=== PATIENT | male | born 1965 | race Caucasian/White ===

== ENCOUNTER 2019-12-07 23:52 | Emergency (ER) | payer OTHER ==
--- NOTE | 2019-12-08 02:14 | ER ---
Nurse's Notes [facility] Name: Jean Claude Harris Age: 54 yrs Sex: Male : 1965 Arrival Date: 12/07/2019 Time: 23:58 Bed 28 Private MD: Diagnosis: Laceration without foreign body of unspecified part of head Presentation: 12/07 00:21 Chief complaint: Patient states: Walked into the corner of a trunk door of a [employer] lp1 truck; Laceration to right eyebrow. Coronavirus screen: Patient denies a cough. Patient denies shortness of breath or difficulty breathing. Patient denies measured and/or subjective temperature greater than 100.4F prior to today's visit. Patient denies travel on a cruise ship or to a country the [facility] currently lists as an affected area. Patient denies contact with known and/or suspected case of COVID-19. Ebola Screen: No symptoms or risks identified at this time. 00:21 Method Of Arrival: Ambulatory lp1 00:23 Risk Assessment: Do you want to hurt yourself or someone else? Patient reports no lp1 desire to harm self or others. Onset of symptoms was December 07, 2019 at 22:00. 00:23 Acuity: JEAN-PIERRE 4 lp1 00:26 Initial Sepsis Screen: Does the patient meet any 2 criteria? No. Patient's initial lp1 sepsis screen is negative. Does the patient have a suspected source of infection? No. Patient's initial sepsis screen is negative. Historical: - Allergies: 00:25 shrimp; lp1 - Home Meds: 00:25 Aspirin Oral [Active]; Chantix oral oral [Active]; Zantac Oral [Active]; Flomax Oral lp1 [Active]; - PMHx: 00:25 Hypertension; Diabetes - NIDDM; GERD; Kidney stones; lp1 - PSHx: 00:25 Vasectomy; lp1 - Immunization history:: Adult Immunizations up to date. - Social history:: Smoking status: Patient/guardian denies using tobacco. Screenin:26 Abuse screen: Denies threats or abuse. Denies injuries from another. Nutritional lp1 screening: No deficits noted. Tuberculosis screening: No symptoms or risk factors identified. Fall Risk None identified. Assessment: 01:39 Reassessment: Patient appears in no apparent distress at this time. sg Vital Signs: 00:25 BP 117 / 74; Pulse 129; Resp 18; Temp 98.2(O); Pulse Ox 96% on R/A; Weight 104.33 kg lp1 (R); Height 5 ft. 11 in. (180.34 cm); Pain 06/10; 01:41 BP 112 / 70; Pulse 91; Resp 18; Pulse Ox 99% on R/A; sg 00:25 Body Mass Index 32.08 (104.33 kg, 180.34 cm) lp1 [place] Coma Score: 20:18 Eye Response: spontaneous(4). Verbal Response: oriented(5). Motor Response: obeys cp commands(6). Total: 15. ED Course: 12/06 23:58 Patient arrived in ED. cl3 12/07 00:23 Triage completed. lp1 00:23 Arm band placed on. lp1 00:59 Aldo Mendoza PA is PHCP. cp 00:59 Aldo Wylie MD is Attending Physician. cp 01:23 Adam Vallejo RN is Primary Nurse. sg 01:38 Irrigation of laceration on outer aspect of right eyebrow irrigated with normal saline sg Hibiclens solution Patient tolerated well. Administered Medications: 01:41 Drug: Lidocaine-Epinephrine -1%: (1:100,000) 5 ml {Note: medication administered by cole HALE.} Volume: 20 ml; Route: Infiltration; 02:10 Drug: Tetanus-Diphtheria Toxoid Adult 0.5 ml {Emergency Department Physician: [id number]. Exp: 07/15/2021. Lot #: [id number]. } Route: IM; Site: left deltoid; Outcome: 02:13 Discharge ordered by . cp 02:24 Patient left the ED. sg Signatures: Adam Vallejo, RN RN Merle Menjivar RN RN lp1 Aldo Mendoza PA PA cp Lewis, Charde cl3
--- NOTE | 2019-12-08 02:15 | EDPHYS ---
Physician Documentation [facility] Name: Jean Claude Harris Age: 54 yrs Sex: Male : 1965 Arrival Date: 12/07/2019 Time: 23:58 Bed 28 Private MD: ED Physician Aldo Wylie HPI: 12/07 01:10 This 54 yrs old Male presents to ER via Ambulatory with complaints of Head cp Injury-Adult. 01:10 The patient or guardian reports a laceration, clean. cp 01:10 The complaints affect the above right eye. Context of injury: resulted from striking cp corner of trunk door of truck. 20:18 Onset: The symptoms/episode began/occurred today. Associated signs and symptoms: Loss cp of consciousness: This patient did not experience any loss of consciousness. Pertinent negatives: neck pain, bony tenderness. Historical: - Allergies: 00:25 shrimp; lp1 - Home Meds: 00:25 Aspirin Oral [Active]; Chantix oral oral [Active]; Zantac Oral [Active]; Flomax Oral lp1 [Active]; - PMHx: 00:25 Hypertension; Diabetes - NIDDM; GERD; Kidney stones; lp1 - PSHx: 00:25 Vasectomy; lp1 - Immunization history:: Adult Immunizations up to date. - Social history:: Smoking status: Patient/guardian denies using tobacco. ROS: 01:20 Skin: Positive for hematoma, laceration(s), of the above right eye. cp 01:20 Eyes: Negative for visual disturbance. cp 01:20 Neck: Negative for pain with movement, pain at rest, stiffness, tenderness, bony tenderness. 01:20 Cardiovascular: Negative for chest pain, palpitations. 01:20 Neuro: Negative for altered mental status, headache, loss of consciousness, weakness. 01:20 All other systems are negative. Exam: 01:30 Constitutional: The patient appears in no acute distress, alert, awake, comfortable, cp non-toxic, well developed, well nourished. 01:30 Head/face: Noted is hematoma, that is mild, of the above right eye, a laceration(s), cp that is linear, of the above right eye, Sinus tenderness, is not appreciated. 01:30 Eyes: Pupils: equal, round, and reactive to light and accomodation, Extraocular movements: intact throughout, Conjunctiva: normal, no exudate, no injection, Lids and lashes: appear normal, bilaterally. 01:30 ENT: External ear(s): are unremarkable, Nose: is normal, Mouth: is normal, Posterior pharynx: Airway: no evidence of obstruction, patent. 01:30 Neck: C-spine: vertebral tenderness, is not appreciated, crepitus, is not appreciated, ROM/movement: is normal, no range of motions limitations, no nuchal rigidity. 01:30 Chest/axilla: Inspection: normal. 01:30 Cardiovascular: Rate: tachycardic, Rhythm: regular. 01:30 Respiratory: the patient does not display signs of respiratory distress, Respirations: normal. 01:30 Abdomen/GI: Exam negative for discomfort, distension, guarding, Inspection: abdomen appears normal. 01:30 Neuro: Orientation: to person, place \T\ time. Mentation: is normal, Cerebellar function: is grossly normal, Motor: moves all fours, strength is normal, Sensation: is normal, Gait: is steady, at a normal pace, without difficulty. Vital Signs: 00:25 BP 117 / 74; Pulse 129; Resp 18; Temp 98.2(O); Pulse Ox 96% on R/A; Weight 104.33 kg lp1 (R); Height 5 ft. 11 in. (180.34 cm); Pain 1/10; 01:41 BP 112 / 70; Pulse 91; Resp 18; Pulse Ox 99% on R/A; sg 00:25 Body Mass Index 32.08 (104.33 kg, 180.34 cm) lp1 [place] Coma Score: 20:18 Eye Response: spontaneous(4). Verbal Response: oriented(5). Motor Response: obeys cp commands(6). Total: 15. Laceration: 02:10 Wound Repair of 3cm ( 1.2in ) subcutaneous laceration to above right eye. Linear cp shaped.. Distal neuro/vascular/tendon intact. Anesthesia: Wound infiltrated with 3 mls of 1% lidocaine w/ Epi. Wound prep: Simple cleansing by nurse. Skin closed with 6 6-0 Prolene using interrupted sutures and sterile technique. Dressed with Bacitracin, bandaid. Patient tolerated well. MDM: 01:09 Patient medically screened. cp 01:40 Differential diagnosis: Contusion of Hematoma on Laceration of Concussion cerebral cp contusion. 02:12 Data reviewed: vital signs, nurses notes. cp 02:12 Counseling: I had a detailed discussion with the patient and/or guardian regarding: the cp historical points, exam findings, and any diagnostic results supporting the discharge/admit diagnosis, to return to the emergency department if symptoms worsen or persist or if there are any questions or concerns that arise at home. Response to treatment: the patient's symptoms have markedly improved after treatment, and as a result, I will discharge patient. Special discussion: Based on the patient's history, exam and DX evaluation, there is no indication for emergent intervention or inpatient TX. It is understood by the patient/guardian that if the SXs persist or worsen they need to return immediately for re-evaluation. 12/07 01:12 Order name: Dressing - Wound; Complete Time: :23 cp 12/07 01:12 Order name: Gloves, Sterile; Complete Time: cp 12/07 01:12 Order name: Setup Suture Tray; Complete Time: cp 12/07 02:01 Order name: Wound dressing; Complete Time: 02:09 cp Administered Medications: 01:41 Drug: Lidocaine-Epinephrine -1%: (1:100,000) 5 ml {Note: medication administered by cole HALE.} Volume: 20 ml; Route: Infiltration; 02:10 Drug: Tetanus-Diphtheria Toxoid Adult 0.5 ml {Word Processor: [email or web address]. Exp: 07/15/2021. Lot #: [id number]. } Route: IM; Site: left deltoid; Disposition: 02:30 Chart complete. cp 06:08 Co-signature as Attending Physician, Aldo Wylie MD I agree with the assessment and [facility] plan of care. Disposition: 12/08/19 02:13 Discharged to Home. Impression: Laceration without foreign body of unspecified part of head. - Condition is Stable. - Discharge Instructions: Facial Laceration. - Medication Reconciliation Form, Thank You Letter, Antibiotic Education, Prescription Opioid Use form. - Follow up: Private Physician; When: 1 week; Reason: Staple/Suture removal. - Problem is new. - Symptoms have improved. Signatures: Adam Vallejo RN RN sg Anderson, Corey, MD MD cha Pena, Laura RN RN lp1 Aldo Mendoza PA PA cp Corrections: (The following items were deleted from the chart) 01:20 01:12 Wound Care ordered. cp tl1 02:24 02:13 12/08/2019 02:13 Discharged to Home. Impression: Laceration without foreign body sg of unspecified part of head. Condition is Stable. Forms are Medication Reconciliation Form, Thank You Letter, Antibiotic Education, Prescription Opioid Use. Follow up: Private Physician; When: 1 week; Reason: Staple/Suture removal. Problem is new. Symptoms have improved. cp 20:18 01:10 Context of injury: resulted from striking corner of , cp cp
[2019-12-08] MEDS ORDERED: TETANUS & DIPHTHERIA TOX,ADULT 0.5 ML VIAL ONE (02:27)
[2019-12-08 02:59] VITALS: TEMP 98.2
[2019-12-08 03:00] VITALS: BP 112/70; O2SAT 99
== END 2019-12-08 02:24 | disposition home or self-care (01) ==
LOC: ER 23:52
PROC: 0JQ10ZZ Repair Face Subcutaneous Tissue and Fascia, Open Approach (ICD-10-PCS; principal; 2019-12-08)
DX: S01.91XA Laceration without foreign body of unspecified part of head, initial encounter (principal); W22.8XXA Striking against or struck by other objects, initial encounter; Y93.9 Activity, unspecified; Y92.9 Unspecified place or not applicable; Z91.013 Allergy to seafood; K21.9 Gastro-esophageal reflux disease without esophagitis; Z23 Encounter for immunization
CPT/HCPCS: 90471; 90714; 99283

== ENCOUNTER 2019-12-17 13:20 | Emergency (ER) | payer OTHER ==
--- NOTE | 2019-12-17 13:49 | EDPHYS ---
Physician Documentation [facility] Name: Jean Claude Harris Age: 54 yrs Sex: Male : 1965 Arrival Date: 12/17/2019 Time: 13:27 Bed Waiting Private MD: Aldo Lackey HPI: 12/16 13:47 This 54 yrs old Male presents to ER via Ambulatory with complaints of Suture kb Removal. 13:47 The patient has sutures on the right side of forehead. Previous treatment: The patient kb was initially treated 10 day(s) ago, the care was rendered at [facility], Treatment type: The patient's original treatment included sutures. Sutures/kiara progress: The patient has no c/o's. The wound is well-healing with no redness, swelling, discharge, or dehiscence reported. The patient has not experienced similar symptoms in the past. The patient has not recently seen a physician. Historical: - Allergies: 13:28 shrimp; sv - PMHx: 13:28 Diabetes - NIDDM; GERD; Hypertension; Kidney stones; sv - PSHx: 13:28 Vasectomy; sv - Immunization history:: Adult Immunizations up to date. - Social history:: Smoking status: . ROS: 13:46 Constitutional: Negative for fever, chills, and weight loss, Cardiovascular: Negative kb for chest pain, palpitations, and edema, Respiratory: Negative for shortness of breath, cough, wheezing, and pleuritic chest pain, Abdomen/GI: Negative for abdominal pain, nausea, vomiting, diarrhea, and constipation, Back: Negative for injury and pain, MS/Extremity: Negative for injury and deformity, Neuro: Negative for headache, weakness, numbness, tingling, and seizure. 13:46 Skin: Positive for of the right side of forehead, sutures in place. Exam: 13:46 Constitutional: This is a well developed, well nourished patient who is awake, alert, kb and in no acute distress. Head/Face: Normocephalic, atraumatic. Chest/axilla: Normal chest wall appearance and motion. Nontender with no deformity. No lesions are appreciated. Cardiovascular: Regular rate and rhythm with a normal S1 and S2. No gallops, murmurs, or rubs. Normal PMI, no JVD. No pulse deficits. Respiratory: Lungs have equal breath sounds bilaterally, clear to auscultation and percussion. No rales, rhonchi or wheezes noted. No increased work of breathing, no retractions or nasal flaring. Abdomen/GI: Soft, non-tender, with normal bowel sounds. No distension or tympany. No guarding or rebound. No evidence of tenderness throughout. MS/ Extremity: Pulses equal, no cyanosis. Neurovascular intact. Full, normal range of motion. Neuro: Awake and alert, GCS 15, oriented to person, place, time, and situation. Cranial nerves II-XII grossly intact. Motor strength 5/5 in all extremities. Sensory grossly intact. Cerebellar exam normal. Normal gait. 13:46 Skin: Wound recheck: Suture laceration closure: the wound is healing well, the edges are well approximated, no evidence of dehiscence, no drainage, no erythema, no swelling. Vital Signs: 13:31 BP 132 / 86; Pulse 99; Resp 16; Temp 99.9; Pulse Ox 97% ; sv MDM: 13:44 Patient medically screened. kb 13:47 Data reviewed: vital signs, nurses notes. Data interpreted: Pulse oximetry: on room air kb is 97 %. Interpretation: normal. Counseling: I had a detailed discussion with the patient and/or guardian regarding: the historical points, exam findings, and any diagnostic results supporting the discharge/admit diagnosis, the need for outpatient follow up, a family practitioner, to return to the emergency department if symptoms worsen or persist or if there are any questions or concerns that arise at home. 13:48 ED course: Sutures removed by RN. kb Administered Medications: No medications were administered Disposition: 12/17 10:24 Co-signature as Attending Physician, Aldo Wylie MD I agree with the assessment and awa plan of care. Disposition: 12/17/19 13:48 Discharged to Home. Impression: Encounter for removal of sutures. - Condition is Stable. - Discharge Instructions: Suture Removal, Care After. - Medication Reconciliation Form, Thank You Letter, Antibiotic Education, Prescription Opioid Use form. - Follow up: Emergency Department; When: As needed; Reason: Worsening of condition. Follow up: Private Physician; When: 2 - 3 days; Reason: Recheck today's complaints, Continuance of care, Re-evaluation by your physician. Signatures: Enriqueta Mendoza FNP-C FNP-Shyla Chino, Aldo Kovacs RN, MD MD cha Corrections: (The following items were deleted from the chart) 12/16 13:50 13:48 12/17/2019 13:48 Discharged to Home. Impression: Encounter for removal of sv sutures. Condition is Stable. Forms are Medication Reconciliation Form, Thank You Letter, Antibiotic Education, Prescription Opioid Use. Follow up: Emergency Department; When: As needed; Reason: Worsening of condition. Follow up: Private Physician; When: 2 - 3 days; Reason: Recheck today's complaints, Continuance of care, Re-evaluation by your physician. kb
--- NOTE | 2019-12-17 13:49 | ER ---
Nurse's Notes [facility] Name: Jean Claude Harris Age: 54 yrs Sex: Male : 1965 Arrival Date: 12/17/2019 Time: 13:27 Bed Waiting Private MD: Diagnosis: Encounter for removal of sutures Presentation: 12/16 13:27 Chief complaint: Patient states: needs sutures removed from the forehead. Coronavirus sv screen: Patient denies a cough. Patient denies shortness of breath or difficulty breathing. Patient denies measured and/or subjective temperature greater than 100.4F prior to today's visit. Patient denies travel on a cruise ship or to a country the [facility] currently lists as an affected area. Patient denies contact with known and/or suspected case of COVID-19. Ebola Screen: No symptoms or risks identified at this time. Risk Assessment: Do you want to hurt yourself or someone else? Patient reports no desire to harm self or others. Onset of symptoms was December 17, 2019. 13:27 Method Of Arrival: Ambulatory sv 13:27 Acuity: JEAN-PIERRE 5 sv 13:36 Initial Sepsis Screen: Does the patient meet any 2 criteria? Yes Does the patient have sv a suspected source of infection? No. Patient's initial sepsis screen is negative. Triage Assessment: 13:27 General: Appears in no apparent distress. comfortable, well groomed, well developed, sv Behavior is calm, cooperative, appropriate for age. Pain: Denies pain. Neuro: Level of Consciousness is awake, alert, obeys commands, Oriented to person, place, time, situation, Moves all extremities. Full function Gait is steady, Speech is normal. Respiratory: Airway is patent Respiratory effort is even, unlabored. Derm: Skin is pink, warm \T\ dry. Historical: - Allergies: 13:28 shrimp; sv - PMHx: 13:28 Diabetes - NIDDM; GERD; Hypertension; Kidney stones; sv - PSHx: 13:28 Vasectomy; sv - Immunization history:: Adult Immunizations up to date. - Social history:: Smoking status: . Screenin:35 Abuse screen: Denies threats or abuse. Denies injuries from another. Nutritional sv screening: No deficits noted. Tuberculosis screening: No symptoms or risk factors identified. Fall Risk None identified. Assessment: 13:35 Reassessment: Patient appears in no apparent distress at this time. Patient and/or sv family updated on plan of care and expected duration. Pain level reassessed. Patient is alert, oriented x 3, equal unlabored respirations, skin warm/dry/pink. Vital Signs: 13:31 BP 132 / 86; Pulse 99; Resp 16; Temp 99.9; Pulse Ox 97% ; sv ED Course: 13:27 Patient arrived in ED. sv 13:27 Triage completed. sv 13:28 Arm band placed on. sv 13:35 Patient has correct armband on for positive identification. sv 13:35 No provider procedures requiring assistance completed. Patient did not have IV access sv during this emergency room visit. Removal of Removed sutures from right side of forehead Suture site is well healed Patient tolerated well. 13:38 Shyla Agarwal RN is Primary Nurse. sv 13:42 Enriqueta Mendoza FNP-C is PHCP. kb 13:42 Aldo Wylie MD is Attending Physician. kb Administered Medications: No medications were administered Outcome: 13:36 Discharged to home ambulatory. sv 13:36 Condition: stable 13:36 Discharge instructions given to patient, Instructed on discharge instructions, follow up and referral plans. wound care, Demonstrated understanding of instructions, follow-up care, wound care. 13:36 Patient left the ED. sv 13:48 Discharge ordered by . kb Signatures: Enriqueta Mendoza FNP-C FNP-Angb Shyla Agarwal RN RN sv Corrections: (The following items were deleted from the chart) 13:51 13:50 Patient left the ED. sv sv
[2019-12-17 13:55] VITALS: BP 132/86; TEMP 99.9; O2SAT 97
== END 2019-12-17 13:50 | disposition home or self-care (01) ==
LOC: ER 13:20
DX: Z48.02 Encounter for removal of sutures (principal)
CPT/HCPCS: 99281